=== PATIENT | female | born 1980 | race African-American/Black ===

== ENCOUNTER 2019-08-23 14:32 | Inpatient (IN) ==
[2019-08-23] MEDS ORDERED: ONDANSETRON 4 MG/2 ML VIAL ONE ×2 (14:43→16:50)
[2019-08-23] MEDS ORDERED: PROMETHAZINE 25 MG/1 ML VIAL ONE (14:58)
[2019-08-23] MEDS ORDERED: SODIUM CHLORIDE 0.9% 1,000 ML IV STA (14:59)
[2019-08-23] MEDS ORDERED: PROMETHAZINE INJ 25 MG in SODIUM CHLORIDE 0.9% 50 ML IV STA (15:10)
[2019-08-23 15:13] LABS: Basophils % 0.3 % (0.0-0.8); Eosinophils % 0.2 % (0.00-10.9); Hematocrit 31.6 VOL% (35.7-47.0); Hemoglobin 10.5 GM/DL (12.0-16.0); Immature Granulocytes % 0.6 %; Immature Granulocytes Absolute 0.06 #; Lymphocytes # 2.7 10*3/uL (1.4-4.0); Lymphocytes % 26.7 % (21.3-54.2); Mean Corpuscular HGB Conc 33.2 GM/DL (32-36); Mean Corpuscular Volume 73.8 FL (87-102); Mean Platelet Volume 11.1 FL (9.6-12.0); Monocytes % 6.6 % (1.7-12.7); Neutrophils % 65.6 % (38.7-73.9); Platelet Count 386 T/CUMM (130-400); Red Blood Count 4.28 MC/CUMM (3.8-5.5); Red Cell Distribution Width 15.4 % (9.3-17.3); White Blood Count 10.3 T/CUMM (4-12)
[2019-08-23 15:41] LABS: Albumin 3.6 G/DL (3.4-5.0); Bilirubin,Total 0.8 MG/DL (0.2-1.0); Calcium 9.2 MG/DL (8.5-10.1); Total Protein 8.2 G/DL (6.4-8.3)
[2019-08-23 16:07] LABS: Apearance,Urine CLEAR (Clear); Bilirubin,Urine Negative (Negative); Blood, Urine Negative (Negative); Glucose,Urine (UA) >=500 mg/dL (Negative); Ketones,Urine 5 mg/dL (Negative); Nitrite,Urine Negative (Negative); Protein,Urine 30 MG/DL; RBC,Urine 1 /HPF (0-4); Squamous Epithelial Cell,Urine Occasional /HPF (0-10); Urine Color Yellow (Yellow); Urine Specific Gravity 1.014 (1.001-1.035); Urine Urobilinogen < 2.0 EU/DL (0.2-1.0); WBC,Urine 1 /HPF (0-6)
[2019-08-23] MEDS ORDERED: INSULIN REGULAR 100 UNIT/ML IV STA (16:47)
[2019-08-23] MEDS ORDERED: MORPHINE 4 MG/1 ML VIAL IM STA (16:47)
[2019-08-23] MEDS ORDERED: METOPROLOL TARTRATE 5 MG/5 ML VIAL IV STA (16:47)
[2019-08-23] MEDS ORDERED: SODIUM CHLORIDE 0.9% 500 ML IV STA (16:48)
[2019-08-23] MEDS ORDERED: POTASSIUM CHLORIDE RIDER 10 MEQ in PREMIX 1 EACH IV PRN (17:41)
[2019-08-23] MEDS ORDERED: GLUCAGON 1 MG VIAL IM PRN (17:41)
[2019-08-23] MEDS ORDERED: PROMETHAZINE 25 MG/1 ML VIAL IV PRN (17:41)
[2019-08-23] MEDS ORDERED: MAGNESIUM SULF RIDER 4 GM in PREMIX 1 EACH IV PRN (17:41)
[2019-08-23] MEDS ORDERED: DEXTROSE 10% 250 ML BAG IV PRN (17:41)
[2019-08-23] MEDS ORDERED: MAGNESIUM SULF RIDER 2 GM in PREMIX 1 EACH IV PRN (17:41)
[2019-08-23] MEDS ORDERED: hydrALAZINE 20 MG/1 ML VIAL IV PRN (17:46)
[2019-08-23] MEDS ORDERED: CIPROFLOXACIN 400 MG/200 ML PREMIX IV ONE (18:31)
[2019-08-23] MEDS: CIPROFLOXACIN INJ 400 MG in PREMIX 1 EACH IV SCH (18:35)
[2019-08-23] MEDS ORDERED: PROMETHAZINE 25 MG/1 ML VIAL IM PRN (19:52)
[2019-08-23] MEDS ORDERED: SCOPOLAMINE 1.5 MG PATCH TRANSDERM ONE (20:00)
[2019-08-23] MEDS: HEPARIN 5,000 UNIT/1 ML VIAL SUBCUT SCH (21:51)
[2019-08-23] MEDS: metroNIDAZOLE INJ 500 MG in PREMIX 1 EACH IV SCH (21:52)
[2019-08-23] MEDS: SODIUM CHLORIDE 0.9% 1,000 ML IV SCH (22:00)
[2019-08-23] MEDS: INSULIN REGULAR 100 UNIT/ML SUBCUT SCH (22:01)
[2019-08-24] MEDS: INSULIN REGULAR 100 UNIT/ML SUBCUT SCH ×4 (00:29→17:48)
[2019-08-24] MEDS: metroNIDAZOLE INJ 500 MG in PREMIX 1 EACH IV SCH ×4 (03:56→21:24)
[2019-08-24] MEDS: HEPARIN 5,000 UNIT/1 ML VIAL SUBCUT SCH ×3 (05:58→21:24)
[2019-08-24] MEDS: CIPROFLOXACIN INJ 400 MG in PREMIX 1 EACH IV SCH ×2 (05:59→17:50)
[2019-08-24] MEDS ORDERED: PROMETHAZINE 25 MG/1 ML VIAL IV PRN (06:57)
[2019-08-24] MEDS ORDERED: PROMETHAZINE INJ 25 MG in SODIUM CHLORIDE 0.9% 50 ML IV PRN (07:07)
[2019-08-24] MEDS: PANTOPRAZOLE 40 MG VIAL IV SCH (09:20)
[2019-08-24] MEDS: SODIUM CHLORIDE 0.9% 1,000 ML IV SCH ×2 (09:20→17:48)
[2019-08-24 11:02] LABS: Basophils % 0.4 % (0.0-0.8); Eosinophils % 0.3 % (0.00-10.9); Hematocrit 29.3 VOL% (35.7-47.0); Hemoglobin 9.8 GM/DL (12.0-16.0); Immature Granulocytes % 0.7 %; Immature Granulocytes Absolute 0.05 #; Lymphocytes # 2.6 10*3/uL (1.4-4.0); Lymphocytes % 34.2 % (21.3-54.2); Mean Corpuscular HGB Conc 33.4 GM/DL (32-36); Mean Corpuscular Volume 74.6 FL (87-102); Mean Platelet Volume 11.3 FL (9.6-12.0); Monocytes % 7.6 % (1.7-12.7); Neutrophils % 56.8 % (38.7-73.9); Platelet Count 305 T/CUMM (130-400); Red Blood Count 3.93 MC/CUMM (3.8-5.5); Red Cell Distribution Width 15.5 % (9.3-17.3); White Blood Count 7.5 T/CUMM (4-12)
[2019-08-24] MEDS: MORPHINE 4 MG/1 ML VIAL IV PRN (11:08)
[2019-08-24 11:40] LABS: Bilirubin,Total 0.6 MG/DL (0.2-1.0); Calcium 8.5 MG/DL (8.5-10.1); Osmolality,Calculated 284.4 MOS/KG (273-304); Risk Ratio 3.23; Thyroid Stimulating Hormone 0.43 uIU/ml (0.358-3.74); Total Protein 7.9 G/DL (6.4-8.3); VLDL CHOLESTEROL 18.8 MG/DL
[2019-08-24] MEDS: hydrALAZINE 20 MG/1 ML VIAL IV SCH ×2 (14:10→17:31)
[2019-08-24] MEDS: ONDANSETRON 4 MG/2 ML VIAL IV PRN (21:24)
[2019-08-25] MEDS ORDERED: PROMETHAZINE 25 MG/1 ML VIAL IV PRN (00:41)
[2019-08-25] MEDS: MORPHINE 4 MG/1 ML VIAL IV PRN ×2 (01:32→23:19)
[2019-08-25] MEDS: PROMETHAZINE INJ 25 MG in SODIUM CHLORIDE 0.9% 50 ML IV PRN ×2 (01:33→20:22)
[2019-08-25] MEDS: hydrALAZINE 20 MG/1 ML VIAL IV SCH ×4 (02:50→18:28)
[2019-08-25] MEDS: INSULIN REGULAR 100 UNIT/ML SUBCUT SCH ×4 (02:50→18:23)
[2019-08-25] MEDS: metroNIDAZOLE INJ 500 MG in PREMIX 1 EACH IV SCH ×3 (03:47→18:23)
[2019-08-25] MEDS: ONDANSETRON 4 MG/2 ML VIAL IV PRN ×3 (03:49→23:19)
[2019-08-25 05:09] LABS: Basophils % 0.3 % (0.0-0.8); Eosinophils % 0.1 % (0.00-10.9); Hematocrit 31.7 VOL% (35.7-47.0); Hemoglobin 10.3 GM/DL (12.0-16.0); Immature Granulocytes % 0.7 %; Immature Granulocytes Absolute 0.05 #; Lymphocytes # 2.1 10*3/uL (1.4-4.0); Mean Corpuscular HGB Conc 32.5 GM/DL (32-36); Mean Corpuscular Volume 75.3 FL (87-102); Mean Platelet Volume 11.1 FL (9.6-12.0); Monocytes % 5.5 % (1.7-12.7); Neutrophils % 66.4 % (38.7-73.9); Platelet Count 376 T/CUMM (130-400); Red Blood Count 4.21 MC/CUMM (3.8-5.5); Red Cell Distribution Width 15.4 % (9.3-17.3); White Blood Count 7.6 T/CUMM (4-12)
[2019-08-25 05:43] LABS: Albumin 3.2 G/DL (3.4-5.0); Bilirubin,Total 0.9 MG/DL (0.2-1.0); Calcium 9.1 MG/DL (8.5-10.1); Osmolality,Calculated 281.8 MOS/KG (273-304); Total Protein 8.2 G/DL (6.4-8.3)
[2019-08-25] MEDS: HEPARIN 5,000 UNIT/1 ML VIAL SUBCUT SCH ×3 (05:46→20:43)
[2019-08-25] MEDS: CIPROFLOXACIN INJ 400 MG in PREMIX 1 EACH IV SCH (05:46)
[2019-08-25] MEDS: SODIUM CHLORIDE 0.9% 1,000 ML IV SCH ×2 (05:47→11:36)
[2019-08-25] MEDS: PANTOPRAZOLE 40 MG VIAL IV SCH (08:34)
[2019-08-25] MEDS: AZITHROMYCIN INJ 250 MG in SODIUM CHLORIDE 0.9% 150 ML IV SCH (15:17)
[2019-08-25] MEDS: INSULIN GLARGINE 100 UNIT/ML SUBCUT SCH (20:43)
[2019-08-26] MEDS: metroNIDAZOLE INJ 500 MG in PREMIX 1 EACH IV SCH ×4 (01:02→17:33)
[2019-08-26] MEDS: hydrALAZINE 20 MG/1 ML VIAL IV SCH ×4 (01:04→17:31)
[2019-08-26] MEDS: INSULIN REGULAR 100 UNIT/ML SUBCUT SCH ×6 (01:12→20:52)
[2019-08-26] MEDS: SODIUM CHLORIDE 0.9% 1,000 ML IV SCH ×2 (04:23→21:00)
[2019-08-26 04:55] LABS: Basophils % 0.3 % (0.0-0.8); Eosinophils % 0.1 % (0.00-10.9); Hematocrit 26.9 VOL% (35.7-47.0); Hemoglobin 8.9 GM/DL (12.0-16.0); Immature Granulocytes % 0.5 %; Immature Granulocytes Absolute 0.04 #; Lymphocytes # 2.8 10*3/uL (1.4-4.0); Lymphocytes % 33.1 % (21.3-54.2); Mean Corpuscular HGB Conc 33.1 GM/DL (32-36); Mean Corpuscular Volume 75.1 FL (87-102); Mean Platelet Volume 10.6 FL (9.6-12.0); Monocytes % 6.4 % (1.7-12.7); Neutrophils % 59.6 % (38.7-73.9); Platelet Count 336 T/CUMM (130-400); Red Blood Count 3.58 MC/CUMM (3.8-5.5); Red Cell Distribution Width 15.2 % (9.3-17.3); White Blood Count 8.6 T/CUMM (4-12)
[2019-08-26 05:12] LABS: Albumin 2.7 G/DL (3.4-5.0); Bilirubin,Total 0.9 MG/DL (0.2-1.0); Calcium 8.6 MG/DL (8.5-10.1); Osmolality,Calculated 279.8 MOS/KG (273-304); Total Protein 7.2 G/DL (6.4-8.3)
[2019-08-26] MEDS: HEPARIN 5,000 UNIT/1 ML VIAL SUBCUT SCH ×3 (06:11→20:51)
[2019-08-26] MEDS ORDERED: POTASSIUM CHLORIDE 20 MEQ TABLET PO ONE (07:20)
[2019-08-26] MEDS: INSULIN GLARGINE 100 UNIT/ML SUBCUT SCH ×2 (08:38→20:51)
[2019-08-26] MEDS: PANTOPRAZOLE 40 MG VIAL IV SCH (08:39)
[2019-08-26] MEDS: AZITHROMYCIN INJ 250 MG in SODIUM CHLORIDE 0.9% 150 ML IV SCH (16:02)
[2019-08-26] MEDS: MORPHINE 4 MG/1 ML VIAL IV PRN (16:16)
[2019-08-27] MEDS: metroNIDAZOLE INJ 500 MG in PREMIX 1 EACH IV SCH ×3 (01:27→13:58)
[2019-08-27] MEDS: hydrALAZINE 20 MG/1 ML VIAL IV SCH ×3 (01:28→12:32)
[2019-08-27 04:49] LABS: Basophils % 0.3 % (0.0-0.8); Eosinophils % 0.2 % (0.00-10.9); Hematocrit 26.9 VOL% (35.7-47.0); Hemoglobin 8.6 GM/DL (12.0-16.0); Immature Granulocytes % 0.5 %; Immature Granulocytes Absolute 0.05 #; Lymphocytes # 3.7 10*3/uL (1.4-4.0); Lymphocytes % 40.4 % (21.3-54.2); Mean Corpuscular Volume 77.3 FL (87-102); Mean Platelet Volume 11.3 FL (9.6-12.0); Monocytes % 9.1 % (1.7-12.7); Neutrophils % 49.5 % (38.7-73.9); Platelet Count 337 T/CUMM (130-400); Red Blood Count 3.48 MC/CUMM (3.8-5.5); Red Cell Distribution Width 15.5 % (9.3-17.3); White Blood Count 9.2 T/CUMM (4-12)
[2019-08-27 05:14] LABS: Alanine Aminotransferase 13 U/L (13-56); Albumin 2.8 G/DL (3.4-5.0); Alkaline Phosphatase 75 U/L (45-117); Aspartate Amino Transferase 8 U/L (0-37); Bilirubin,Total < 0.39 MG/DL (0.2-1.0); Blood Urea Nitrogen 7 MG/DL (7-18); Calcium 8.5 MG/DL (8.5-10.1); Estimated Glom Filtration Rate 91 ML/MIN; Glucose 283 MG/DL (74-106); Osmolality,Calculated 284.5 MOS/KG (273-304); Total Protein 7.1 G/DL (6.4-8.3)
[2019-08-27] MEDS: HEPARIN 5,000 UNIT/1 ML VIAL SUBCUT SCH ×2 (07:21→13:51)
[2019-08-27] MEDS: INSULIN REGULAR 100 UNIT/ML SUBCUT SCH ×2 (08:18→12:29)
[2019-08-27] MEDS: SODIUM CHLORIDE 0.9% 1,000 ML IV SCH (08:19)
[2019-08-27] MEDS: PANTOPRAZOLE 40 MG VIAL IV SCH (08:19)
[2019-08-27] MEDS ORDERED: oxyCODONE/ACETAMINOPHEN 5-325 MG TABLET PO PRN (08:47)
[2019-08-27] MEDS ORDERED: INSULIN GLARGINE 100 UNIT/ML SUBCUT SCH (09:00)
[2019-08-27 12:31] VITALS: BP 127/58
== END 2019-08-27 15:00 | disposition home or self-care (01) | DRG 74 ==
LOC: N.EDINP 14:32 → N.ED 14:32 → N.2W 18:35 → N.3E 08-24 16:32
PROVIDERS: ADMIT Internal Medicine; ATTEND Internal Medicine